=== PATIENT | female | born 1985 | race Caucasian/White ===

== ENCOUNTER 2016-11-10 02:08 | Emergency (ER) | payer OTHER ==
[~2016-11-10] VITALS: Ht 167.6 cm; Wt 63.5 kg
[2016-11-10 02:15] VITALS: BP 122/75
--- NOTE | 2016-11-10 02:27 | PHYS DOC ---
Past Medical History Past Medical History: No Pertinent History Past Surgical History: Tonsillectomy Alcohol Use: None Drug Use: None Adult General Chief Complaint Chief Complaint: FOOT INJURY PAIN HPI HPI Patient is a 31 year old female who presents with left midfoot pain that has gradually started since this evening after she hit the lateral aspect of her left foot on a large griffith at work. The pain was on the ground and she accidentally kicked in with the top/lateral part of her foot. Pain is achy, constant, worse with range of motion. She denies numbness, tingling, weakness, ankle pain, knee pain, fall, other injury. Review of Systems Review of Systems Constitutional: Denies fever or chills [] Eyes: Denies change in visual acuity, redness, or eye pain [] HENT: Denies nasal congestion or sore throat [] Respiratory: Denies cough or shortness of breath [] Cardiovascular: No additional information not addressed in HPI [] GI: Denies abdominal pain, nausea, vomiting, bloody stools or diarrhea [] : Denies dysuria or hematuria [] Musculoskeletal: Denies back pain [] Integument: Denies rash or skin lesions [] Neurologic: Denies headache, focal weakness or sensory changes [] Endocrine: Denies polyuria or polydipsia [] Current Medications Current Medications Current Medications Medications (Trade) Dose Ordered Sig/Louie Start Time Stop Time Status Last Admin Dose Admin Ibuprofen (Motrin) 600 mg 1X ONCE 11/10/16 02:30 11/10/16 02:31 DC Allergies Allergies Allergies Coded Allergies Type Severity Reaction Last Updated Verified No Known Drug Allergies 05/22/15 No Physical Exam Physical Exam Constitutional: Well developed, well nourished, no acute distress, non-toxic appearance. [] HENT: Normocephalic, atraumatic, bilateral external ears normal, oropharynx moist, nose normal. [] Eyes: PERRLA, EOMI. [] Neck: Normal range of motion, supple. [] Cardiovascular: Bilateral DP and PT pulses equal and 2+ [] Lungs & Thorax: Respirations even and unlabored. [] Skin: Warm, dry, no erythema, no rash. [] Back: Normal range of motion. [] Extremities: No obvious deformity or discoloration other than tiny nonbleeding abrasion to lateral mid foot; Has tenderness to soft tissues of foot dorsum with no palpable abnormality; Can flex/ex toes but worsens pain to midfoot; Can dorsiflex/plantar flex ankle but worsens pain to midfoot; No medial or lateral malleolar tenderness; No 5 th metatarsal base tenderness; SILT tinoco/sa/sp/dp/tib distributionsy Neurologic: Alert and oriented X 3, normal motor function, normal sensory function, no focal deficits noted. [] Psychologic: Affect normal, judgement normal, mood normal. [] Current Patient Data Vital Signs Vital Signs Date Time Temp Pulse Resp B/P Pulse Ox O2 Delivery O2 Flow Rate FiO2 11/10/16 02:15 98.7 107 20 100 Room Air 98.7 Radiology/Procedures Radiology/Procedures X-ray left foot as interpreted by me was no acute fracture or dislocation Course & Med Decision Making Course & Med Decision Making Pertinent Labs and Imaging studies reviewed. (See chart for details) Suspect sprain of left foot. Discussed RICE for MSK injury. Return precautions given. She understood and agrees with plan. Dragon Disclaimer Bryan Disclaimer This electronic medical record was generated, in whole or in part, using a voice recognition dictation system. Departure Departure Impression: Primary Impression: Left foot pain Disposition: 01 HOME, SELF-CARE Condition: STABLE Referrals: NO PCP (PCP) Patient Instructions: Foot Contusion, [id number] Additional Instructions: Take Tylenol or ibuprofen as needed for moderate pain. Take hydrocodone as needed for severe pain. Do not drink, drive or operate heavy machinery after taking hydrocodone as it may make you sleepy. Follow-up with your primary care doctor. Return for any concerns. Scripts Hydrocodone Bit/Acetaminophen (Hydrocodone-Apap 5-325 )1 Each Tablet1-2 Tab PO PRN Q6HRS PRN PAIN #6 TAB Prov:Chance VILLEGAS MD 11/10/16 Chance VILLEGAS MD Nov 10, 2016 02:26
[2016-11-10] MEDS ORDERED: IBUPROFEN 600 MG TABLET. PO ONE (02:30)
[2016-11-10] MEDS ORDERED: HYDR-2666 PO (02:39)
--- NOTE | 2016-11-10 07:23 | RAD ---
Left foot, 3 views, 11/10/2016: History: Foot pain, injury No fracture or dislocation is identified. The soft tissues are unremarkable. IMPRESSION: No acute left foot abnormality is detected.
== END 2016-11-10 02:45 | disposition home or self-care (01) ==
LOC: ER 02:08
DX: M79.672 Pain in left foot (principal); W22.8XXA Striking against or struck by other objects, initial encounter; Y93.89 Activity, other specified; Y99.8 Other external cause status; Y92.89 Other specified places as the place of occurrence of the external cause
CPT/HCPCS: 73630; 99284

== ENCOUNTER 2018-06-26 19:18 | Emergency (ER) | payer BC, OTHER ==
[~2018-06-26] VITALS: Ht 170.2 cm; Wt 65.8 kg
[~2018-06-26 19:18] MED LIST: HYDR-2758 PO
[2018-06-26 19:32] VITALS: BP 130/73
[2018-06-26 19:42] LABS: BILIRUBIN,URINE NEGATIVE (NEG); CLARITY,URINE CLOUDY; COLOR,URINE YELLOW; NITRITE,URINE NEGATIVE (NEG); PROTEIN,URINE NEGATIVE (NEG-TRACE)
--- NOTE | 2018-06-26 19:45 | PHYS DOC ---
Past Medical History Past Medical History: No Pertinent History Past Surgical History: Tonsillectomy Alcohol Use: None Drug Use: None Adult General Chief Complaint Chief Complaint: VAGINAL BLEEDING HPI HPI Patient is a 32 year old female 4 para 1 with 2 miscarriages who presents today complaining of vaginal bleeding in that began Friday which is 5 days ago. Patient states it began as spotting and now has increased to more bleeding needing a tampon today. Patient is also complaining of intermittent episodes of slight lower abdominal cramping that began today. Patient denies any nausea vomiting. She states her last menstrual cycle was the end of March. Review of Systems Review of Systems Constitutional: Denies fever or chills [] Eyes: Denies change in visual acuity, redness, or eye pain [] HENT: Denies nasal congestion or sore throat [] Respiratory: Denies cough or shortness of breath [] Cardiovascular: No additional information not addressed in HPI [] GI: Reports vaginal bleeding in and slight lower abdominal pain, denies, nausea, vomiting, bloody stools or diarrhea [] : Denies dysuria or hematuria [] Musculoskeletal: Denies back pain or joint pain [] Integument: Denies rash or skin lesions [] All other systems were reviewed and found to be within normal limits, except as documented in this note. Current Medications Current Medications Current Medications Medications (Trade) Dose Ordered Sig/Louie Start Time Stop Time Status Last Admin Dose Admin Azithromycin (Zithromax) 1,000 mg 1X ONCE 06/26/18 23:00 06/26/18 23:01 DC Ceftriaxone Sodium (Rocephin Im) 250 mg 1X ONCE 06/26/18 23:00 06/26/18 23:01 DC Metronidazole (Flagyl) 2,000 mg 1X ONCE 06/26/18 23:00 06/26/18 23:01 DC Allergies Allergies Allergies Coded Allergies Type Severity Reaction Last Updated Verified No Known Drug Allergies 05/22/15 No Physical Exam Physical Exam Constitutional: Well developed, well nourished, no acute distress, non-toxic appearance. [] HENT: Normocephalic, atraumatic, bilateral external ears normal, oropharynx moist, no oral exudates, nose normal. [] Eyes: PERRLA, EOMI, conjunctiva normal, no discharge. [] Neck: Normal range of motion, no tenderness, supple, no stridor. [] Cardiovascular:Heart rate regular rhythm, no murmur [] Lungs & Thorax: Bilateral breath sounds clear to auscultation [] Abdomen: Bowel sounds normal, soft, no tenderness, no masses, no pulsatile masses. [] Pelvic exam External pelvic appears normal, cervix is closed, no CMT, trace amount of brownish discharge in the vaginal vault, no adnexal tenderness Skin: Warm, dry, no erythema, no rash. [] Back: No tenderness, no CVA tenderness. [] Extremities: No tenderness, no cyanosis, no clubbing, ROM intact, no edema. [] Neurologic: Alert and oriented X 3, normal motor function, normal sensory function, no focal deficits noted. [] Psychologic: Affect normal, judgement normal, mood normal. [] Current Patient Data Vital Signs Vital Signs Date Time Temp Pulse Resp B/P (MAP) Pulse Ox O2 Delivery O2 Flow Rate FiO2 06/26/18 19:32 98.5 147 20 130/73 (92) 99 Room Air 98.5 Lab Values Laboratory Tests Test 06/26/18 19:25 06/26/18 19:37 06/26/18 19:44 Urine Collection Type Void Urine Color Yellow Urine Clarity Cloudy Urine pH 7.0 Urine Specific [place] 1.020 Urine Protein Negative mg/dL (NEG-TRACE) Urine Glucose (UA) Negative mg/dL (NEG) Urine Ketones (Stick) Negative mg/dL (NEG) Urine Blood Moderate (NEG) Urine Nitrite Negative (NEG) Urine Bilirubin Negative (NEG) Urine Urobilinogen Dipstick 1.0 mg/dL (0.2 mg/dL) Urine Leukocyte Esterase Trace (NEG) Urine RBC 0 /HPF (0-2) Urine WBC Rare /HPF (0-4) Urine Squamous Epithelial Cells Mod /LPF Urine Bacteria 0 /HPF (0-FEW) Urine Mucus Slight /LPF Urine Trichomonas Present POC Urine HCG, Qualitative Hcg positive (Negative) White Blood Count 12.2 x10^3/uL (4.0-11.0) H Red Blood Count 4.64 x10^6/uL (3.50-5.40) Hemoglobin 13.4 g/dL (12.0-15.5) Hematocrit 39.3 % (36.0-47.0) Mean Corpuscular Volume 85 fL (79-100) Mean Corpuscular Hemoglobin 29 pg (25-35) Mean Corpuscular Hemoglobin Concent 34 g/dL (31-37) Red Cell Distribution Width 13.6 % (11.5-14.5) Platelet Count 318 x10^3/uL (140-400) Neutrophils (%) (Auto) 73 % (31-73) Lymphocytes (%) (Auto) 19 % (24-48) L Monocytes (%) (Auto) 6 % (0-9) Eosinophils (%) (Auto) 2 % (0-3) Basophils (%) (Auto) 1 % (0-3) Neutrophils # (Auto) 8.8 x10^3uL (1.8-7.7) H Lymphocytes # (Auto) 2.3 x10^3/uL (1.0-4.8) Monocytes # (Auto) 0.8 x10^3/uL (0.0-1.1) Eosinophils # (Auto) 0.2 x10^3/uL (0.0-0.7) Basophils # (Auto) 0.1 x10^3/uL (0.0-0.2) Maternal Serum HCG Beta Subunit 9752 mIU/mL (0-5) H Sodium Level 142 mmol/L (136-145) Potassium Level 3.5 mmol/L (3.5-5.1) Chloride Level 105 mmol/L (98-107) Carbon Dioxide Level 26 mmol/L (21-32) Anion Gap 11 (6-14) Blood Urea Nitrogen 16 mg/dL (7-20) Creatinine 0.5 mg/dL (0.6-1.0) L Estimated GFR (Cockcroft-Gault) 143.0 BUN/Creatinine Ratio 32 (6-20) H Glucose Level 101 mg/dL (70-99) H Calcium Level 8.9 mg/dL (8.5-10.1) Total Bilirubin 0.2 mg/dL (0.2-1.0) Aspartate Amino Transferase (AST) 24 U/L (15-37) Alanine Aminotransferase (ALT) 40 U/L (14-59) Alkaline Phosphatase 92 U/L (46-116) Total Protein 7.2 g/dL (6.4-8.2) Albumin 3.2 g/dL (3.4-5.0) L Albumin/Globulin Ratio 0.8 (1.0-1.7) L Laboratory Tests 06/26/18 19:44 Laboratory Tests 06/26/18 19:44 Microbiology 06/26/18 Wet Prep - Final, Complete EKG EKG [] Radiology/Procedures Radiology/Procedures []REASON: vag bleeding in PROCEDURE: OB <14 WKS W/TV EXAM: OBSTETRIC ULTRASOUND <14 WEEKS. HISTORY: Vaginal bleeding in . FINDINGS: Sonographic evaluation of the pelvis was performed transabdominally and transvaginally. The uterus is anteverted and measures 10 x 7 x 5 cm. A single intrauterine gestation measures 6 weeks zero days by crown-rump length. There is no detectable heart motion. A yolk sac is visualized. There is no subchorionic collection. The gestational sac is larger than expected for gestational age and elongated. The right ovary measures 2.7 x 1.6 x 2.0 cm. The right ovary contains a corpus luteum cyst measuring 1.6 cm. The left ovary measures 2.6 x 1.4 x 1.2 cm. There are no suspicious lesions. There is normal flow bilaterally. There is no adnexal mass. There is no significant free fluid. IMPRESSION: 1. An intrauterine gestation measures 6 weeks zero days by crown-rump length, but the gestational sac is larger than expected, and no heart motion is identified. This is consistent with a nonviable gestation. Ongoing follow-up is recommended. Electronically signed by: Tayler Cabrera MD (06/26/2018 9:31 PM) [facility] DICTATED and SIGNED BY: RENETTA CABRERA MD DATE: 06/26/182127 Course & Med Decision Making Course & Med Decision Making Pertinent Labs and Imaging studies reviewed. (See chart for details) This is a 32-year-old female patient presenting to the ED today with vaginal bleeding in as well as slight abdominal pain. Symptoms began 5 days ago. On physical exam patient was spotting. Positive urine hCG, beta-hCG with 9752. CBC with a WBC of 12.2. CMP with no acute findings. Urine analysis is noted for Trichomonas, wet prep is negative for any acute findings. Patient was given Flagyl, Rocephin and azithromycin. Blood group O positive. OB ultrasound was noted for IUP gestational measures 6 weeks 0 days by crown rump length but gestational sac is larger than expected and no heart motion is identified. This is consistent with a nonviable gestational. Ongoing follow-up is recommended. I spoke to Dr. Vivi CISNEROS. She requested patient to observe conservative measures, no sex, no heavy lifting, follow-up with [facility] [facility] in 2 days for repeat ultrasound as well as repeat beta hCG. Patient was also instructed to return to the ED at any point symptoms worsen. Dragon Disclaimer Dragon Disclaimer This electronic medical record was generated, in whole or in part, using a voice recognition dictation system. Departure Departure Impression: Primary Impression: Threatened miscarriage Additional Impression: Trichomonas vaginitis Disposition: HOME, SELF-CARE Condition: STABLE Referrals: NO PCP (PCP) SAUD CORTES MD follow up with your OBGYN in 2 days for repeat labs and ultrasound Patient Instructions: Threatened Miscarriage, Trichomoniasis-Brief Additional Instructions: You were evaluated in the emergency room for vaginal bleeding in . Please follow-up with your [employer] [facility] in 2 days for repeat beta hCG as well as repeat ultrasound. Please do not do any strenuous activities, no sex, no heavy lifting. You were also treated for Trichomonas, this is a sexually transmitted disease. Ensure you contact all your partners, let them know you were treated for STDs and ask them to seek treatment too. Problem Qualifiers PHIL BLACK APRN Jun 26, 2018 19:45
[2018-06-26 19:54] LABS: BASO # 0.1 x10^3/uL (0.0-0.2); BASO % 1 % (0-3); EOS # 0.2 x10^3/uL (0.0-0.7); EOS % 2 % (0-3); HEMATOCRIT 39.3 % (36.0-47.0); HEMOGLOBIN 13.4 g/dL (12.0-15.5); LYMPH # 2.3 x10^3/uL (1.0-4.8); LYMPH % 19 % (24-48); MEAN CORPUSCULAR HEMOGLOBIN 29 pg (25-35); MEAN CORPUSCULAR HGB CONC 34 g/dL (31-37); MEAN CORPUSCULAR VOLUME 85 fL (79-100); MONO # 0.8 x10^3/uL (0.0-1.1); MONO % 6 % (0-9); NEUT # 8.8 x10^3uL (1.8-7.7); NEUT % 73 % (31-73); PLATELET COUNT 318 x10^3/uL (140-400); RED BLOOD COUNT 4.64 x10^6/uL (3.50-5.40); RED CELL DISTRIBUTION WIDTH 13.6 % (11.5-14.5); WHITE BLOOD COUNT 12.2 x10^3/uL (4.0-11.0)
[2018-06-26 20:13] LABS: BACTERIA,URINE 0 /HPF (0-FEW); RBC,URINE 0 /HPF (0-2); SQUAMOUS EPITHELIAL CELL,UR MOD /LPF; TRICHOMONAS,URINE PRESENT; WBC,URINE RARE /HPF (0-4)
[2018-06-26 20:16] LABS: CALCIUM 8.9 mg/dL (8.5-10.1); CREATININE 0.5 mg/dL (0.6-1.0); POTASSIUM 3.5 mmol/L (3.5-5.1)
[2018-06-26 20:24] LABS: ALBUMIN 3.2 g/dL (3.4-5.0); ALBUMIN/GLOBULIN RATIO 0.8 (1.0-1.7); TOTAL BILIRUBIN 0.2 mg/dL (0.2-1.0); TOTAL PROTEIN 7.2 g/dL (6.4-8.2)
--- NOTE | 2018-06-26 21:33 | RAD ---
EXAM: OBSTETRIC ULTRASOUND <14 WEEKS. HISTORY: Vaginal bleeding in . FINDINGS: Sonographic evaluation of the pelvis was performed transabdominally and transvaginally. The uterus is anteverted and measures 10 x 7 x 5 cm. A single intrauterine gestation measures 6 weeks zero days by crown-rump length. There is no detectable heart motion. A yolk sac is visualized. There is no subchorionic collection. The gestational sac is larger than expected for gestational age and elongated. The right ovary measures 2.7 x 1.6 x 2.0 cm. The right ovary contains a corpus luteum cyst measuring 1.6 cm. The left ovary measures 2.6 x 1.4 x 1.2 cm. There are no suspicious lesions. There is normal flow bilaterally. There is no adnexal mass. There is no significant free fluid. IMPRESSION: 1. An intrauterine gestation measures 6 weeks zero days by crown-rump length, but the gestational sac is larger than expected, and no heart motion is identified. This is consistent with a nonviable gestation. Ongoing follow-up is recommended. Electronically signed by: Tayler Cabrera MD (06/26/2018 9:31 PM) [facility]
[2018-06-26] MEDS ORDERED: metroNIDAZOLE 500 MG TABLET PO ONE (23:00)
[2018-06-26] MEDS ORDERED: cefTRIAXone IM 250 MG VIAL IM ONE (23:00)
[2018-06-26] MEDS ORDERED: AZITHROMYCIN 250 MG TABLET. PO ONE (23:00)
[2018-06-29 15:26] LABS: GC PROBE Negative (Negative)
== END 2018-06-26 22:45 | disposition home or self-care (01) ==
LOC: ER 19:18
DX: O20.0 Threatened abortion (principal); O98.311 Other infections with a predominantly sexual mode of transmission complicating pregnancy, first trimester; A59.01 Trichomonal vulvovaginitis; Z90.89 Acquired absence of other organs; Z3A.01 Less than 8 weeks gestation of pregnancy
CPT/HCPCS: 76801; 76817; 80053; 81001; 81025; 84702; 85025; 86850; 86900; 86901; 87086; 87491; 87591; 96372; 99285; J0696; Q0111; Q0144

== ENCOUNTER 2018-06-29 06:30 | Emergency (ER) | payer BC ==
[~2018-06-29] VITALS: Ht 170.2 cm; Wt 65.8 kg
[2018-06-29] MEDS ORDERED: ACETAMINOPHEN 500 MG TABLET PO ONE (07:15)
[2018-06-29 07:18] LABS: BASO # 0.1 x10^3/uL (0.0-0.2); BASO % 1 % (0-3); EOS # 0.4 x10^3/uL (0.0-0.7); EOS % 3 % (0-3); HEMATOCRIT 39.6 % (36.0-47.0); HEMOGLOBIN 13.3 g/dL (12.0-15.5); LYMPH # 2.6 x10^3/uL (1.0-4.8); LYMPH % 22 % (24-48); MEAN CORPUSCULAR HEMOGLOBIN 29 pg (25-35); MEAN CORPUSCULAR HGB CONC 34 g/dL (31-37); MEAN CORPUSCULAR VOLUME 85 fL (79-100); MONO # 0.9 x10^3/uL (0.0-1.1); MONO % 7 % (0-9); NEUT % 67 % (31-73); PLATELET COUNT 335 x10^3/uL (140-400); RED BLOOD COUNT 4.66 x10^6/uL (3.50-5.40); RED CELL DISTRIBUTION WIDTH 13.5 % (11.5-14.5); WHITE BLOOD COUNT 11.9 x10^3/uL (4.0-11.0)
[2018-06-29] MEDS ORDERED: KETOROLAC 15 MG/ML VIAL. IV ONE (08:00)
--- NOTE | 2018-06-29 08:06 | RAD ---
OB ultrasound study less than 14 weeks-transabdominal and transvaginal exam Clinical indications: . Vaginal bleeding. COMPARISON: June 26, 2018. Transabdominal sonography: Uterus is anteverted in position. There is a gestational sac present within the lower body of uterus. It has migrated inferiorly from the previously seen fundal position which is considered abnormal for typical of a spontaneous . Transvaginal sonography will be performed. Neither ovary is visualized. Transvaginal sonography: Transvaginal sonography demonstrates an elongated gestational sac within the lower uterine segment just above the cervix. There is a small single fetus present. [place]-rump length is 0.23 cm which corresponds to a gestational age of 5 weeks and 5 days. This has decreased in size from the previous study when the crown-rump length measured 0.34. In addition, the relative gestational sac size is much larger than the fetus. No heartbeat is seen. Findings are consistent with spontaneous . The endometrial canal within the fundal portion of the uterus measures only 6 mm in thickness as well. The right ovary is not visualized. No adnexal mass is seen on the right side. The left ovary is visualized and is normal measuring 2.3 cm x 1.8 cm x 1.3 cm in size. Color Doppler flow is seen within the left ovary. No left adnexal mass is seen. No free fluid is evident. IMPRESSION: Findings are consistent with spontaneous . The gestational sac has now migrated more inferiorly within the lower body of the uterus just above the cervix. Electronically signed by: Scout Paulino MD (06/29/2018 8:03 AM) [facility]
[2018-06-29] MEDS ORDERED: HYDR-971 PO (08:55)
[2018-06-29 09:20] VITALS: BP 112/57
--- NOTE | 2018-06-29 09:48 | PHYS DOC ---
Past Medical History Past Medical History: No Pertinent History Past Surgical History: Tonsillectomy Alcohol Use: None Drug Use: None Adult General Chief Complaint Chief Complaint: ABDOMINAL PAIN IN HPI HPI Patient is a 32 year old female who presents with lower abdominal pain and cramping as well as continued vaginal spotting with occasional clots. Pain increased this morning she was seen here the other day she had betas of 9000 ultrasound showing an abnormal gestational sac and was advised on follow-up. She has an appointment at 2 PM today symptoms are moderate left lower quadrant radiates to the center intermittent cramping has not tried anything for relief Review of Systems Review of Systems Constitutional: Denies fever or chills [] Eyes: Denies change in visual acuity, redness, or eye pain [] HENT: Denies nasal congestion or sore throat [] Respiratory: Denies cough or shortness of breath [] Musculoskeletal: Denies back pain or joint pain [] Integument: Denies rash or skin lesions [] Neurologic: Denies headache, focal weakness or sensory changes [] All other systems were reviewed and found to be within normal limits, except as documented in this note. Current Medications Current Medications Current Medications Medications (Trade) Dose Ordered Sig/Louie Start Time Stop Time Status Last Admin Dose Admin Acetaminophen (Tylenol) 1,000 mg 1X ONCE 06/29/18 07:15 06/29/18 07:16 DC 06/29/18 07:18 1,000 MG Ketorolac Tromethamine (Toradol 15mg Vial) 15 mg 1X ONCE 06/29/18 08:00 06/29/18 08:04 DC 06/29/18 08:04 15 MG Allergies Allergies Allergies Coded Allergies Type Severity Reaction Last Updated Verified No Known Drug Allergies 05/22/15 No Physical Exam Physical Exam Constitutional: Well developed, well nourished, no acute distress, non-toxic appearance. [] HENT: Normocephalic, atraumatic, bilateral external ears normal, oropharynx moist, no oral exudates, nose normal. [] Eyes: PERRLA, EOMI, conjunctiva normal, no discharge. [] Neck: Normal range of motion, no tenderness, supple, no stridor. [] Pulmonary: Normal respiratory effort no increased work of breathing no obvious chest wall trauma Abdomen: Bowel sounds normal, soft, suprapubic tenderness, no masses, no pulsatile masses. [] exam shows an open cervix with moderate blood in the vaginal vault trace bruising there were significant apparent blood clots and also likely proximal of conception in the vaginal canal that were easily removed by me. Skin: Warm, dry, no erythema, no rash. [] Back: No tenderness, no CVA tenderness. [] Extremities: No tenderness, no cyanosis, no clubbing, ROM intact, no edema. [] Neurologic: Alert and oriented X 3, normal motor function, normal sensory function, no focal deficits noted. [] Psychologic: Affect normal, judgement normal, mood normal. [] Current Patient Data Vital Signs Vital Signs Date Time Temp Pulse Resp B/P (MAP) Pulse Ox O2 Delivery O2 Flow Rate FiO2 06/29/18 07:36 94 18 115/58 (77) 99 Room Air 06/29/18 06:45 98.3 98.3 Lab Values Laboratory Tests Test 06/29/18 06:45 06/29/18 07:00 POC Urine HCG, Qualitative Hcg positive (Negative) White Blood Count 11.9 x10^3/uL (4.0-11.0) H Red Blood Count 4.66 x10^6/uL (3.50-5.40) Hemoglobin 13.3 g/dL (12.0-15.5) Hematocrit 39.6 % (36.0-47.0) Mean Corpuscular Volume 85 fL (79-100) Mean Corpuscular Hemoglobin 29 pg (25-35) Mean Corpuscular Hemoglobin Concent 34 g/dL (31-37) Red Cell Distribution Width 13.5 % (11.5-14.5) Platelet Count 335 x10^3/uL (140-400) Neutrophils (%) (Auto) 67 % (31-73) Lymphocytes (%) (Auto) 22 % (24-48) L Monocytes (%) (Auto) 7 % (0-9) Eosinophils (%) (Auto) 3 % (0-3) Basophils (%) (Auto) 1 % (0-3) Neutrophils # (Auto) 8.0 x10^3uL (1.8-7.7) H Lymphocytes # (Auto) 2.6 x10^3/uL (1.0-4.8) Monocytes # (Auto) 0.9 x10^3/uL (0.0-1.1) Eosinophils # (Auto) 0.4 x10^3/uL (0.0-0.7) Basophils # (Auto) 0.1 x10^3/uL (0.0-0.2) Maternal Serum HCG Beta Subunit 7238 mIU/mL (0-5) H Laboratory Tests 06/29/18 07:00 EKG EKG [] Radiology/Procedures Radiology/Procedures [] Impressions: Transvaginal sonography: Transvaginal sonography demonstrates an elongated gestational sac within the lower uterine segment just above the cervix. There is a small single fetus present. [place]-rump length is 0.23 cm which corresponds to a gestational age of 5 weeks and 5 days. This has decreased in size from the previous study when the crown-rump length measured 0.34. In addition, the relative gestational sac size is much larger than the fetus. No heartbeat is seen. Findings are consistent with spontaneous . The endometrial canal within the fundal portion of the uterus measures only 6 mm in thickness as well. The right ovary is not visualized. No adnexal mass is seen on the right side. The left ovary is visualized and is normal measuring 2.3 cm x 1.8 cm x 1.3 cm in size. Color Doppler flow is seen within the left ovary. No left adnexal mass is seen. No free fluid is evident. IMPRESSION: Findings are consistent with spontaneous . The gestational sac has now migrated more inferiorly within the lower body of the uterus just above the cervix. Electronically signed by: Kamryn Paulino MD (06/29/2018 8:03 AM) [facility] DICTATED and SIGNED BY: KAMRYN PAULINO MD Course & Med Decision Making Course & Med Decision Making Pertinent Labs and Imaging studies reviewed. (See chart for details) []32-year-old female 6 weeks presenting with spontaneous miscarriage. Wrist on ultrasound and a declining beta. In the emergency room I removed a fairly significant amount of apparent POC from the vaginal vault. Patient has follow-up appointment 2 PM she is hemolytically stable her symptoms are controlled I give prescription for Clio and advised to keep her appointment. At this point I do not think that she needs a stat D and c sent poc to lab for confirmation Dragon Disclaimer Dragon Disclaimer This electronic medical record was generated, in whole or in part, using a voice recognition dictation system. Departure Departure Impression: Primary Impression: Spontaneous Disposition: 01 HOME, SELF-CARE Condition: STABLE Patient Instructions: Miscarriage, [id number] Additional Instructions: go to your appointment today Scripts Hydrocodone/Apap 5-325 (NORCO 5-325 TABLET) 1 Each Tablet 1-2 EACH PO PRN Q6HRS PRN for PAIN, #15 as needed for pain Prov: ARABELLA BELCHER MD 06/29/18 ARABELLA BELCHER MD Jun 29, 2018 09:48
--- NOTE | 2018-06-30 16:08 | PATHOLOGY ---
[facility] Accession Number: [id number] . 01 Material submitted: . PRODUCTS OF CONCEPTION . 01 Clinician provided ICD-10: O03.9 . 01 Clinical history: . SAB, probable products of conception . 02 Diagnosis: Tissue designated "products of conception": - Blood clot containing focally admixed squamous epithelial cells and inflammatory cells. See comment. (JPM:earnest; 06/30/2018) QMS/06/30/2018 . 02 Comment: The entire specimen is submitted for histologic evaluation. The microscopic sections reveal blood clot containing focally admixed squamous epithelial cells and inflammatory cells. There are no chorionic villi identified. (JPM:earnest; 06/30/2018) . 02 Electronically signed: . Ramon Goldsmith MD, Pathologist NPI- [id number] . 01 Gross description: . The specimen is received in formalin, labeled "Mary [place], products of conception" and consists of 11 g of blood clot measuring 5.5 x 5.0 x 1.0 cm. No soft tissue, vesicular structures, or parts are identified. The specimen is entirely submitted in A1-A6. (SDY; 06/29/2018) SYU/SYU . 02 Pathologist provided ICD-10: O03.9, O02.89 . 02 CPT . 732059 Specimen Comment: A courtesy copy of this report has been sent to Specimen Comment: [phone], . Specimen Comment: Report sent to / DR KLEIN Specimen Comment: A duplicate report has been generated due to demographic updates. Performed at: [address], [place], [place] [id number] MD Jake Barksdale MD Phone: [phone] Performed at: 02 [facility] [address] [place], [place] [id number] MD Ramon Goldsmith MD Phone: [phone]
[2018-07-05] MEDS ORDERED: IBUP-1060 PO (11:34)
== END 2018-06-29 09:20 | disposition home or self-care (01) ==
LOC: ER 06:30
DX: O03.9 Complete or unspecified spontaneous abortion without complication (principal); Z3A.01 Less than 8 weeks gestation of pregnancy
CPT/HCPCS: 36415; 76801; 76817; 81025; 84702; 85025; 88305; 96374; 99285; J1885

== ENCOUNTER 2018-07-04 11:25 | Observation (INO) | payer BC ==
[2018-07-04] VITALS (8 sets, daily range): BP systolic 94–114; BP diastolic 44–63
[~2018-07-04] VITALS: Ht 170.2 cm; Wt 72.6 kg
[~2018-07-04 11:25] MED LIST changes: +HYDR-971 PO
[2018-07-04] MEDS ORDERED: OXYTOCIN 10 UNIT/ML VIAL. ONE ×2 (11:40→13:30)
[2018-07-04] MEDS ORDERED: VASOPRESSIN 20 UNIT/ML VIAL. ONE (11:40)
[2018-07-04] MEDS ORDERED: IV NORMAL SALINE 1000ML BAG 1,000 ML IV ONE ×2 (12:00)
[2018-07-04 12:06] LABS: BASO # 0.1 x10^3/uL (0.0-0.2); BASO % 1 % (0-3); EOS # 0.1 x10^3/uL (0.0-0.7); EOS % 2 % (0-3); HEMATOCRIT 32.7 % (36.0-47.0); HEMOGLOBIN 11.2 g/dL (12.0-15.5); LYMPH # 2.1 x10^3/uL (1.0-4.8); LYMPH % 24 % (24-48); MEAN CORPUSCULAR HEMOGLOBIN 29 pg (25-35); MEAN CORPUSCULAR HGB CONC 34 g/dL (31-37); MEAN CORPUSCULAR VOLUME 85 fL (79-100); MONO # 0.6 x10^3/uL (0.0-1.1); MONO % 7 % (0-9); NEUT # 5.8 x10^3uL (1.8-7.7); NEUT % 67 % (31-73); PLATELET COUNT 313 x10^3/uL (140-400); RED BLOOD COUNT 3.87 x10^6/uL (3.50-5.40); RED CELL DISTRIBUTION WIDTH 13.4 % (11.5-14.5); WHITE BLOOD COUNT 8.7 x10^3/uL (4.0-11.0)
[2018-07-04 12:11] LABS: CALCIUM 9.2 mg/dL (8.5-10.1); CREATININE 0.6 mg/dL (0.6-1.0); GFR 115.9; POTASSIUM 3.6 mmol/L (3.5-5.1)
[2018-07-04] MEDS ORDERED: MORPHINE SULFATE 10 MG/ML VIAL. IV ONE (12:15)
[2018-07-04] MEDS ORDERED: ONDANSETRON PF 4 MG/2 ML VIAL. IM ONE (12:15)
[2018-07-04 12:17] LABS: ALBUMIN 3.3 g/dL (3.4-5.0); ALBUMIN/GLOBULIN RATIO 0.9 (1.0-1.7); TOTAL BILIRUBIN 0.4 mg/dL (0.2-1.0); TOTAL PROTEIN 7.1 g/dL (6.4-8.2)
[2018-07-04] MEDS ORDERED: PROPOFOL 20 ML IV ONE (12:31)
[2018-07-04] MEDS ORDERED: LIDOCAINE 2% PF Vial for OR 5 ML VIAL. ONE (12:32)
[2018-07-04] MEDS ORDERED: ONDANSETRON PF 4 MG/2 ML VIAL. ONE (12:32)
[2018-07-04] MEDS ORDERED: SUCCINYLCHOLINE 200 MG/10 ML VIAL. ONE (12:32)
[2018-07-04] MEDS ORDERED: DEXAMETHASONE SOD PHOS 20 MG/5 ML VIAL. ONE (12:32)
[2018-07-04] MEDS ORDERED: fentaNYL PF VIAL 100 MCG/2 ML VIAL ONE ×2 (12:33→13:46)
[2018-07-04] MEDS ORDERED: MIDAZOLAM HCL/PF 2 MG/2 ML VIAL. ONE (12:33)
[2018-07-04] MEDS ORDERED: ROCURONIUM 50 MG/5 ML VIAL. ONE (12:43)
[2018-07-04] MEDS ORDERED: ONDANSETRON PF 4 MG/2 ML VIAL. IV PRN ×3 (12:45→13:45)
[2018-07-04] MEDS ORDERED: MORPHINE SULFATE 4 MG/ML VIAL. IV PRN (12:45)
[2018-07-04] MEDS ORDERED: fentaNYL PF VIAL 100 MCG/2 ML VIAL IV PRN ×2 (12:45→13:00)
[2018-07-04] MEDS ORDERED: IV RINGERS,LACTATED 1000ML 1,000 ML IV SCH (12:53)
[2018-07-04] MEDS ORDERED: HYDROmorphone 2 MG/ML VIAL IV PRN (13:00)
[2018-07-04] MEDS ORDERED: LIDOCAINE 1% PF 2 ML VIAL. ID PRN (13:00)
[2018-07-04] MEDS ORDERED: PROCHLORPERAZINE 10 MG/2 ML VIAL. IV PRN ×2 (13:00→13:45)
[2018-07-04] MEDS ORDERED: MORPHINE SULFATE 2 MG/ML VIAL. IV PRN (13:00)
[2018-07-04] MEDS ORDERED: FAMOTIDINE 20 MG/2 ML VIAL ONE (13:21)
--- NOTE | 2018-07-04 13:40 | PDOC ---
BRIEF OPERATIVE NOTE Date: Jul 04, 2018 Pre-Op Diagnosis 8 wks Incomplete AB Post-Op Diagnosis Same Procedure Performed Suction D&C Surgeon Dr. Scott Anesthesia Type: General Blood Loss 100 ml Specimens Obtained POC and blood products Findings POC and blood products Complications none Operative Note see dictation STEPHANIE SCOTT Jr, MD Jul 04, 2018 13:40
[2018-07-04] MEDS ORDERED: diphenhydrAMINE HCL 25 MG CAPSULE PO PRN (13:45)
[2018-07-04] MEDS ORDERED: KETOROLAC 30 MG/ML VIAL. IV PRN (13:45)
[2018-07-04] MEDS ORDERED: CALCIUM CARBONATE 500 MG TAB.CHEW PO PRN (13:45)
[2018-07-04] MEDS ORDERED: oxyCODONE/APAP 5/325 1 TAB TABLET PO PRN (13:45)
[2018-07-04] MEDS ORDERED: 0.9 % SODIUM CHLORIDE 10 ML DISP.SYRIN. IV PRN (13:45)
[2018-07-04] MEDS ORDERED: ZOLPIDEM 5 MG TABLET. PO PRN (13:45)
[2018-07-04] MEDS ORDERED: DEXTROSE 50% 25 GM / 50ML DISP.SYRIN. IV PRN (13:45)
[2018-07-04] MEDS ORDERED: SIMETHICONE 80 MG TAB.CHEW PO PRN (13:45)
[2018-07-04] MEDS: fentaNYL PF VIAL 100 MCG/2 ML VIAL IV PRN ×2 (13:52→14:07)
--- NOTE | 2018-07-04 13:57 | OP ---
DATE OF SURGERY: 07/04/2018 PREOPERATIVE DIAGNOSES: Eight weeks incomplete . POSTOPERATIVE DIAGNOSIS: Eight weeks incomplete . PROCEDURE: Suction D and C. SURGEON: Gagandeep Scott MD ANESTHESIA: GETA. ESTIMATED BLOOD LOSS: 100 mL, mainly blood clot. FINDINGS: Products of conception and blood products. SUMMARY: A 32-year-old female with 8-week incomplete , requiring suction D and C for active bleeding. The patient was counseled on risks, benefits and expectations and voiced clear understanding to proceed. DESCRIPTION OF PROCEDURE: The patient was taken to surgery suite and placed in dorsal lithotomy position. She was prepped with Betadine solution and draped in sterile fashion. After adequate anesthesia, weighted speculum and curved Dale placed vaginally. Blood clot and previous packing from the Emergency Department was removed. There was a large amount of tissue right at the cervical os that was removed with ring forceps. Suction curette at a pressure of 65 cmHg was placed and rotated in circumferential manner in the uterine cavity, removing additional blood products. The sharp curettage then was performed until a fine gritty surface was palpated circumferentially. Suction curette was once again passed removing additional blood products. The patient tolerated the procedure well. Single tooth tenaculum, weighted speculum and curved Dale were all removed. She was taken to recovery room in stable condition. Sponge and needle count correct x 3. GAGANDEEP SCOTT MD DR: LUZ/mikal JOB#: [id number] / [id number]
[2018-07-04] MEDS ORDERED: IV NORMAL SALINE 1000ML BAG 1,000 ML IV SCH (14:00)
[2018-07-04] MEDS ORDERED: GABAPENTIN 300 MG CAPSULE. PO SCH (15:00)
--- NOTE | 2018-07-04 15:40 | PHYS DOC ---
Past Medical History Past Medical History: No Pertinent History Past Surgical History: Tonsillectomy, Other Additional Past Surgical Histo: D&C Alcohol Use: None Drug Use: None Adult General Chief Complaint Chief Complaint: VAGINAL BLEEDING HPI HPI Patient is a 32 year old female who presents with heavy vaginal bleeding. The patient states that she has been experiencing intermittent vaginal bleeding for 2 weeks. She was seen at this facility where she had proximal of conception were removed and had what was thought to be a complete miscarriage. The patient states that 2 days ago she started having much heavier bleeding. She states that when she stands up she immediately soaks a pad. She denies chest pain, shortness of breath, lightheadedness or fever. She denies pelvic pain. Review of Systems Review of Systems Constitutional: Denies fever or chills [] Respiratory: Denies cough or shortness of breath [] Cardiovascular: No additional information not addressed in HPI [] GI: Denies abdominal pain, nausea, vomiting, bloody stools or diarrhea [] : See history of present illness Musculoskeletal: Denies back pain or joint pain [] Integument: Denies rash or skin lesions [] Neurologic: Denies headache, focal weakness or sensory changes [] Endocrine: Denies polyuria or polydipsia [] All other systems were reviewed and found to be within normal limits, except as documented in this note. Current Medications Current Medications Current Medications Medications (Trade) Dose Ordered Sig/Louie Start Time Stop Time Status Last Admin Dose Admin Cefazolin Sodium/ Dextrose 50 ml @ As Directed STK-MED ONCE 07/04/18 13:07 07/04/18 13:08 DC Dexamethasone Sodium Phosphate (Decadron) 20 mg STK-MED ONCE 07/04/18 12:32 07/04/18 12:33 DC Famotidine (Pepcid Vial) 20 mg STK-MED ONCE 07/04/18 13:21 07/04/18 13:22 DC Fentanyl Citrate (Fentanyl 2ml Vial) 50 mcg PRN Q5MIN PRN 07/04/18 13:00 07/05/18 12:59 07/04/18 14:07 50 MCG Hydromorphone HCl (Dilaudid) 0.5 mg PRN Q10MIN PRN 07/04/18 13:00 07/05/18 12:59 Lidocaine HCl (Lidocaine Pf 2% Vial) 5 ml STK-MED ONCE 07/04/18 12:32 07/04/18 12:33 DC Lidocaine HCl (Xylocaine-Mpf 1% 2ml Vial) 2 ml 1X PRN PRN 07/04/18 13:00 07/05/18 12:59 Midazolam HCl (Versed) 2 mg STK-MED ONCE 07/04/18 12:33 07/04/18 12:34 DC Morphine Sulfate (Morphine Sulfate) 1 mg PRN Q10MIN PRN 07/04/18 13:00 07/05/18 12:59 Ondansetron HCl (Zofran) 4 mg PRN Q6HRS PRN 07/04/18 13:00 07/04/18 13:45 DC Oxytocin (Pitocin) 10 unit STK-MED ONCE 07/04/18 13:30 07/04/18 13:31 DC Prochlorperazine Edisylate (Compazine) 5 mg PACU PRN PRN 07/04/18 13:00 07/05/18 12:59 Propofol 20 ml @ As Directed STK-MED ONCE 07/04/18 12:31 07/04/18 12:32 DC Ringer's Solution 1,000 ml @ 30 mls/hr Q24H 07/04/18 12:53 07/05/18 00:52 Rocuronium [place] (Zemuron) 50 mg STK-MED ONCE 07/04/18 12:43 07/04/18 12:44 DC Sodium Chloride 1,000 ml @ 1,000 mls/hr 1X ONCE 07/04/18 12:00 07/04/18 12:59 DC 07/04/18 12:03 1,000 MLS/HR Succinylcholine Chloride (Anectine) 200 mg STK-MED ONCE 07/04/18 12:32 07/04/18 12:33 DC Vasopressin (Vasostrict) 20 unit STK-MED ONCE 07/04/18 11:40 07/04/18 12:41 DC Allergies Allergies Allergies Coded Allergies Type Severity Reaction Last Updated Verified No Known Drug Allergies 05/22/15 No Physical Exam Physical Exam Constitutional: Well developed, well nourished, no acute distress, non-toxic appearance. [] Neck: Normal range of motion, no tenderness, supple, no stridor. [] Cardiovascular:Heart rate regular rhythm, no murmur [] Lungs & Thorax: Bilateral breath sounds clear to auscultation [] Abdomen: Bowel sounds normal, soft, no tenderness, no masses, no pulsatile masses. [] Skin: Warm, dry, no erythema, no rash. [] Neurologic: Alert and oriented X 3, normal motor function, normal sensory function, no focal deficits noted. [] Psychologic: Affect normal, judgement normal, mood normal. [] Current Patient Data Vital Signs Vital Signs Date Time Temp Pulse Resp B/P (MAP) Pulse Ox O2 Delivery O2 Flow Rate FiO2 07/04/18 13:42 99.3 106 16 121/68 100 Simple Mask 10 99.3 Lab Values Laboratory Tests Test 07/04/18 11:50 White Blood Count 8.7 x10^3/uL (4.0-11.0) Red Blood Count 3.87 x10^6/uL (3.50-5.40) Hemoglobin 11.2 g/dL (12.0-15.5) L Hematocrit 32.7 % (36.0-47.0) L Mean Corpuscular Volume 85 fL (79-100) Mean Corpuscular Hemoglobin 29 pg (25-35) Mean Corpuscular Hemoglobin Concent 34 g/dL (31-37) Red Cell Distribution Width 13.4 % (11.5-14.5) Platelet Count 313 x10^3/uL (140-400) Neutrophils (%) (Auto) 67 % (31-73) Lymphocytes (%) (Auto) 24 % (24-48) Monocytes (%) (Auto) 7 % (0-9) Eosinophils (%) (Auto) 2 % (0-3) Basophils (%) (Auto) 1 % (0-3) Neutrophils # (Auto) 5.8 x10^3uL (1.8-7.7) Lymphocytes # (Auto) 2.1 x10^3/uL (1.0-4.8) Monocytes # (Auto) 0.6 x10^3/uL (0.0-1.1) Eosinophils # (Auto) 0.1 x10^3/uL (0.0-0.7) Basophils # (Auto) 0.1 x10^3/uL (0.0-0.2) Sodium Level 139 mmol/L (136-145) Potassium Level 3.6 mmol/L (3.5-5.1) Chloride Level 103 mmol/L (98-107) Carbon Dioxide Level 25 mmol/L (21-32) Anion Gap 11 (6-14) Blood Urea Nitrogen 17 mg/dL (7-20) Creatinine 0.6 mg/dL (0.6-1.0) Estimated GFR (Cockcroft-Gault) 115.9 BUN/Creatinine Ratio 28 (6-20) H Glucose Level 110 mg/dL (70-99) H Calcium Level 9.2 mg/dL (8.5-10.1) Total Bilirubin 0.4 mg/dL (0.2-1.0) Aspartate Amino Transferase (AST) 40 U/L (15-37) H Alanine Aminotransferase (ALT) 58 U/L (14-59) Alkaline Phosphatase 80 U/L (46-116) Total Protein 7.1 g/dL (6.4-8.2) Albumin 3.3 g/dL (3.4-5.0) L Albumin/Globulin Ratio 0.9 (1.0-1.7) L Laboratory Tests 07/04/18 11:50 Laboratory Tests 07/04/18 11:50 EKG EKG [] Radiology/Procedures Radiology/Procedures [] Pelvic Exam: Nurses Assistant present Abdomen: Nontender External Genitalia: Normal Skin Speculum: Normal vaginal mucosa, heavy bloody cervical discharge, multiple clots were removed and the blood in the canal was removed with ring forceps and 4 x 4's. The bleeding continues to be brisk. There is a large clot that is unable to be removed near the cervix blocking visualization of the os. Course & Med Decision Making Course & Med Decision Making Pertinent Labs and Imaging studies reviewed. (See chart for details) []Dr. Scott was consulted in the care of this patient. He is taking the patient to the OR for suction D&C. The patient has given written consent. She will be transported directly to the OR from the emergency department. Dragon Disclaimer Dragon Disclaimer This electronic medical record was generated, in whole or in part, using a voice recognition dictation system. Departure Departure Impression: Primary Impression: Vaginal bleeding Disposition: ADMITTED INPATIENT Admitting Physician: Other Condition: NADIA OSMAN APRN Jul 04, 2018 15:40
[2018-07-05 04:13] LABS: BASO % 0 % (0-3); EOS % 0 % (0-3); HEMATOCRIT 24.2 % (36.0-47.0); HEMOGLOBIN 8.1 g/dL (12.0-15.5); LYMPH # 1.4 x10^3/uL (1.0-4.8); LYMPH % 10 % (24-48); MEAN CORPUSCULAR HEMOGLOBIN 29 pg (25-35); MEAN CORPUSCULAR HGB CONC 34 g/dL (31-37); MEAN CORPUSCULAR VOLUME 86 fL (79-100); MONO # 0.8 x10^3/uL (0.0-1.1); MONO % 5 % (0-9); NEUT # 12.3 x10^3uL (1.8-7.7); NEUT % 85 % (31-73); PLATELET COUNT 292 x10^3/uL (140-400); RED BLOOD COUNT 2.82 x10^6/uL (3.50-5.40); RED CELL DISTRIBUTION WIDTH 13.3 % (11.5-14.5); WHITE BLOOD COUNT 14.6 x10^3/uL (4.0-11.0)
[2018-07-05 04:24] LABS: CALCIUM 8.4 mg/dL (8.5-10.1); CREATININE 0.5 mg/dL (0.6-1.0); POTASSIUM 4.4 mmol/L (3.5-5.1)
[2018-07-05 06:20] VITALS: BP 95/46
[2018-07-05 11:00] VITALS: BP 106/63
--- NOTE | 2018-07-05 11:32 | PDOC ---
SURGICAL PROGRESS NOTE Subjective Pt. feeling well. No complaints. Vital Signs Vital Signs Date Time Temp Pulse Resp B/P (MAP) Pulse Ox O2 Delivery O2 Flow Rate FiO2 07/05/18 11:00 98.0 95 18 106/63 (77) Room Air 98.0 07/04/18 23:13 100 07/04/18 13:42 10 I&O Intake and Output 07/05/18 07:00 Intake Total 15 ml Balance 15 ml Intake Oral 15 ml # Voids 1 PATIENT HAS A MARSHALL: No General: Alert, Oriented X3, Cooperative HEENT: Atraumatic Lungs: Clear to auscultation Heart: Regular rate Abdomen: Normal bowel sounds, Soft, No tenderness, No masses Neuro: Normal gait Psych/Mental Status: Mental status NL Labs Laboratory Tests Test 07/04/18 11:50 07/05/18 03:30 White Blood Count 8.7 x10^3/uL (4.0-11.0) 14.6 x10^3/uL (4.0-11.0) Red Blood Count 3.87 x10^6/uL (3.50-5.40) 2.82 x10^6/uL (3.50-5.40) Hemoglobin 11.2 g/dL (12.0-15.5) 8.1 g/dL (12.0-15.5) Hematocrit 32.7 % (36.0-47.0) 24.2 % (36.0-47.0) Mean Corpuscular Volume 85 fL (79-100) 86 fL (79-100) Mean Corpuscular Hemoglobin 29 pg (25-35) 29 pg (25-35) Mean Corpuscular Hemoglobin Concent 34 g/dL (31-37) 34 g/dL (31-37) Red Cell Distribution Width 13.4 % (11.5-14.5) 13.3 % (11.5-14.5) Platelet Count 313 x10^3/uL (140-400) 292 x10^3/uL (140-400) Neutrophils (%) (Auto) 67 % (31-73) 85 % (31-73) Lymphocytes (%) (Auto) 24 % (24-48) 10 % (24-48) Monocytes (%) (Auto) 7 % (0-9) 5 % (0-9) Eosinophils (%) (Auto) 2 % (0-3) 0 % (0-3) Basophils (%) (Auto) 1 % (0-3) 0 % (0-3) Neutrophils # (Auto) 5.8 x10^3uL (1.8-7.7) 12.3 x10^3uL (1.8-7.7) Lymphocytes # (Auto) 2.1 x10^3/uL (1.0-4.8) 1.4 x10^3/uL (1.0-4.8) Monocytes # (Auto) 0.6 x10^3/uL (0.0-1.1) 0.8 x10^3/uL (0.0-1.1) Eosinophils # (Auto) 0.1 x10^3/uL (0.0-0.7) 0.0 x10^3/uL (0.0-0.7) Basophils # (Auto) 0.1 x10^3/uL (0.0-0.2) 0.0 x10^3/uL (0.0-0.2) Sodium Level 139 mmol/L (136-145) 142 mmol/L (136-145) Potassium Level 3.6 mmol/L (3.5-5.1) 4.4 mmol/L (3.5-5.1) Chloride Level 103 mmol/L (98-107) 108 mmol/L (98-107) Carbon Dioxide Level 25 mmol/L (21-32) 26 mmol/L (21-32) Anion Gap 11 (6-14) 8 (6-14) Blood Urea Nitrogen 17 mg/dL (7-20) 14 mg/dL (7-20) Creatinine 0.6 mg/dL (0.6-1.0) 0.5 mg/dL (0.6-1.0) Estimated GFR (Cockcroft-Gault) 115.9 143.0 BUN/Creatinine Ratio 28 (6-20) Glucose Level 110 mg/dL (70-99) 126 mg/dL (70-99) Calcium Level 9.2 mg/dL (8.5-10.1) 8.4 mg/dL (8.5-10.1) Total Bilirubin 0.4 mg/dL (0.2-1.0) Aspartate Amino Transf (AST/SGOT) 40 U/L (15-37) Alanine Aminotransferase (ALT/SGPT) 58 U/L (14-59) Alkaline Phosphatase 80 U/L (46-116) Total Protein 7.1 g/dL (6.4-8.2) Albumin 3.3 g/dL (3.4-5.0) Albumin/Globulin Ratio 0.9 (1.0-1.7) Laboratory Tests Test 07/04/18 11:50 07/05/18 03:30 White Blood Count 8.7 x10^3/uL (4.0-11.0) 14.6 x10^3/uL (4.0-11.0) Red Blood Count 3.87 x10^6/uL (3.50-5.40) 2.82 x10^6/uL (3.50-5.40) Hemoglobin 11.2 g/dL (12.0-15.5) 8.1 g/dL (12.0-15.5) Hematocrit 32.7 % (36.0-47.0) 24.2 % (36.0-47.0) Mean Corpuscular Volume 85 fL (79-100) 86 fL (79-100) Mean Corpuscular Hemoglobin 29 pg (25-35) 29 pg (25-35) Mean Corpuscular Hemoglobin Concent 34 g/dL (31-37) 34 g/dL (31-37) Red Cell Distribution Width 13.4 % (11.5-14.5) 13.3 % (11.5-14.5) Platelet Count 313 x10^3/uL (140-400) 292 x10^3/uL (140-400) Neutrophils (%) (Auto) 67 % (31-73) 85 % (31-73) Lymphocytes (%) (Auto) 24 % (24-48) 10 % (24-48) Monocytes (%) (Auto) 7 % (0-9) 5 % (0-9) Eosinophils (%) (Auto) 2 % (0-3) 0 % (0-3) Basophils (%) (Auto) 1 % (0-3) 0 % (0-3) Neutrophils # (Auto) 5.8 x10^3uL (1.8-7.7) 12.3 x10^3uL (1.8-7.7) Lymphocytes # (Auto) 2.1 x10^3/uL (1.0-4.8) 1.4 x10^3/uL (1.0-4.8) Monocytes # (Auto) 0.6 x10^3/uL (0.0-1.1) 0.8 x10^3/uL (0.0-1.1) Eosinophils # (Auto) 0.1 x10^3/uL (0.0-0.7) 0.0 x10^3/uL (0.0-0.7) Basophils # (Auto) 0.1 x10^3/uL (0.0-0.2) 0.0 x10^3/uL (0.0-0.2) Sodium Level 139 mmol/L (136-145) 142 mmol/L (136-145) Potassium Level 3.6 mmol/L (3.5-5.1) 4.4 mmol/L (3.5-5.1) Chloride Level 103 mmol/L (98-107) 108 mmol/L (98-107) Carbon Dioxide Level 25 mmol/L (21-32) 26 mmol/L (21-32) Anion Gap 11 (6-14) 8 (6-14) Blood Urea Nitrogen 17 mg/dL (7-20) 14 mg/dL (7-20) Creatinine 0.6 mg/dL (0.6-1.0) 0.5 mg/dL (0.6-1.0) Estimated GFR (Cockcroft-Gault) 115.9 143.0 BUN/Creatinine Ratio 28 (6-20) Glucose Level 110 mg/dL (70-99) 126 mg/dL (70-99) Calcium Level 9.2 mg/dL (8.5-10.1) 8.4 mg/dL (8.5-10.1) Total Bilirubin 0.4 mg/dL (0.2-1.0) Aspartate Amino Transf (AST/SGOT) 40 U/L (15-37) Alanine Aminotransferase (ALT/SGPT) 58 U/L (14-59) Alkaline Phosphatase 80 U/L (46-116) Total Protein 7.1 g/dL (6.4-8.2) Albumin 3.3 g/dL (3.4-5.0) Albumin/Globulin Ratio 0.9 (1.0-1.7) Problem List Problems Medical Problems: (1) Vaginal bleeding Status: Acute Assessment/Plan POD# 1 s/p suction D&C P: D/c home. STEPHANIE SOMERS Jr, MD Jul 05, 2018 11:32
--- NOTE | 2018-07-05 11:33 | DISCH ---
DISCHARGE INSTRUCTIONS Condition on Discharge Condition on Discharge: Stable Activity After Discharge Activity Instructions for Disc: Activity as tolerated Lifting Instructions after Dis: No heavy lifting Driving Instructions after Dis: Do not drive today Diet after Discharge Diet after Discharge: Regular Contacting the DRCristina after DC Call your doctor for: Concerns you may have Follow-Up Follow up with: Dr. Scott in 1 week. STEPHANIE SCOTT Jr, MD Jul 05, 2018 11:33
[2018-07-05] MEDS ORDERED: IBUP-1060 PO (11:34)
--- NOTE | 2018-07-07 14:08 | PATHOLOGY ---
[facility] Accession Number: [id number] . 01 Material submitted: . PRODUCTS OF CONCEPTION . 01 Clinician provided ICD-10: N93.9 . 01 Clinical history: . None provided . 02 Diagnosis: Uterine contents, dilatation and curettage: - Products of conception, comprised of immature chorionic villi showing focal necrosis and degenerative changes and intervillous hemorrhage, decidual tissue showing focal hemorrhage, necrosis, and acute inflammation, and endomyometrial tissue. . (JPM:mml; 07/07/18) [facility]/07/07/2018 . 02 Electronically signed: . Ramon Goldsmith MD, Pathologist NPI- [id number] . 01 Gross description: . The specimen is received in formalin, labeled "Mary Reid, products of conception". Received are multiple segments of dusky gardner-angel soft tissue admixed with blood coagulum and villiform tissue measuring 7.6 x 6.5 x 2.9 cm in aggregate dimensions. or embryonic tissue is not grossly identified. Vesicular structures are absent. The specimen is submitted representatively in cassettes A1 through A3. (CAA; 07/06/2018) QAC/QAC . 02 Pathologist provided ICD-10: N93.9, O02.89 . 02 CPT . 617254 Specimen Comment: A courtesy copy of this report has been sent to Specimen Comment: [phone], . Specimen Comment: Report sent to / DR ROMEO Specimen Comment: A duplicate report has been generated due to demographic updates. Performed at: [address], [place], [place] [id number] MD Jake Barksdale MD Phone: [phone] Performed at: 02 [facility] [address] [place], [place] [id number] MD Ramon Goldsmith MD Phone: [phone]
== END 2018-07-05 12:20 | disposition home or self-care (01) ==
LOC: ER 11:25 → 3 NORTH 13:42 → INTOOBSV 13:42 → UNDODISOB 07-05 12:20
PROVIDERS: ADMIT Obstetrics & Gynecology; ATTEND Obstetrics & Gynecology
DX: O03.4 Incomplete spontaneous abortion without complication (principal); Z3A.08 8 weeks gestation of pregnancy
CPT/HCPCS: 36415; 59812; 80048; 80053; 85025; 86850; 86900; 86901; 88305; 99285; G0378; J0330; J0690; J1100; J2001; J2250; J2590; J2704; J3010; J3490; J7030; G0379; J2405

== ENCOUNTER 2019-04-26 16:11 | Emergency (ER) | payer BC ==
[~2019-04-26] VITALS: Ht 167.6 cm; Wt 65.8 kg
[~2019-04-26 16:11] MED LIST changes: -HYDR-2758 PO; +HYDR-2761 PO; +HYDR-3164 PO; -HYDR-971 PO; +IBUP-1060 PO
[2019-04-26 16:47] VITALS: BP 140/92
[2019-04-26] MEDS ORDERED: cefTRIAXone IM 1 GM VIAL IM ONE (17:00)
[2019-04-26] MEDS ORDERED: oxyCODONE/APAP 5/325 1 TAB TABLET PO ONE (17:00)
--- NOTE | 2019-04-26 17:18 | PHYS DOC ---
Past Medical History Past Medical History: No Pertinent History Past Surgical History: Tonsillectomy, Other Additional Past Surgical Histo: D&C Alcohol Use: None Drug Use: None Adult General Chief Complaint Chief Complaint: ABSCESS HPI HPI Patient is a 33 year old female who presents with an abscess to her lower back. She was seen in [place] at an Emergency Department where they drained the abscess and placed packing. The patient is here to have her packing removed. She has a prescription for Bactrim DS that she has not filled. She states that the abscess is still very sore. Review of Systems Review of Systems Constitutional: Denies fever or chills [] Respiratory: Denies cough or shortness of breath [] Cardiovascular: No additional information not addressed in HPI [] GI: Denies abdominal pain, nausea, vomiting, bloody stools or diarrhea [] : Denies dysuria or hematuria [] Musculoskeletal: Denies back pain or joint pain [] Integument: See history of present illness Neurologic: Denies headache, focal weakness or sensory changes [] Endocrine: Denies polyuria or polydipsia [] All other systems were reviewed and found to be within normal limits, except as documented in this note. Current Medications Current Medications Current Medications Medications (Trade) Dose Ordered Sig/Louie Start Time Stop Time Status Last Admin Dose Admin Ceftriaxone Sodium (Rocephin Im) 1 gm 1X ONCE 04/26/19 17:00 04/26/19 17:01 DC 04/26/19 17:24 1 GM Oxycodone/ Acetaminophen (Percocet 5/325) 1 tab 1X ONCE 04/26/19 17:00 04/26/19 17:01 DC 04/26/19 17:24 1 TAB Allergies Allergies Allergies Coded Allergies Type Severity Reaction Last Updated Verified No Known Drug Allergies 05/22/15 No Physical Exam Physical Exam Constitutional: Well developed, well nourished, no acute distress, non-toxic appearance. [] Cardiovascular:Heart rate regular rhythm, no murmur [] Lungs & Thorax: Bilateral breath sounds clear to auscultation [] Skin: There is a 3 cm abscess with erythema and calor noted, packing is in place, there is drainage coming out around the packing. After removal of the packing a large amount of purulent drainage was removed, it was redressed with a bulky dressing Back: No tenderness, no CVA tenderness. [] Extremities: No tenderness, no cyanosis, no clubbing, ROM intact, no edema. [] Neurologic: Alert and oriented X 3, normal motor function, normal sensory function, no focal deficits noted. [] Psychologic: Affect normal, judgement normal, mood normal. [] Current Patient Data Vital Signs Vital Signs Date Time Temp Pulse Resp B/P (MAP) Pulse Ox O2 Delivery O2 Flow Rate FiO2 04/26/19 17:24 16 99 Room Air 04/26/19 16:47 98.6 106 140/92 (108) 98.6 EKG EKG [] Radiology/Procedures Radiology/Procedures [] Course & Med Decision Making Course & Med Decision Making Pertinent Labs and Imaging studies reviewed. (See chart for details) The patient was given a gram of Rocephin and a dose of Percocet in the emergency department. She is been counseled not to drive with the pain medication. She is to fill her Bactrim DS immediately and begin taking it. She is to follow-up with her primary care in 2 days for recheck. Dragon Disclaimer Dragon Disclaimer This electronic medical record was generated, in whole or in part, using a voice recognition dictation system. Departure Departure Impression: Primary Impression: Abscess Disposition: 01 HOME, SELF-CARE Condition: STABLE Referrals: NO PCP (PCP) Patient Instructions: Abscess Additional Instructions: Use hot compresses multiple times daily. Take taking the Bactrim DS today. You were given a dose of Rocephin in the emergency department. This will not replace your oral antibiotic. Do not drive or operate heavy machinery today as you were given pain medication in the emergency department. NADIA ROMEO SENIOR ENERGY ANALYST Apr 26, 2019 17:17
== END 2019-04-26 17:56 | disposition home or self-care (01) ==
LOC: ER 16:11
DX: L02.212 Cutaneous abscess of back [any part, except buttock and flank] (principal); Z90.89 Acquired absence of other organs
CPT/HCPCS: 96372; 99283; J0696

== ENCOUNTER 2019-10-04 07:49 | Emergency (ER) | payer BC ==
[2019-10-04 08:05] VITALS: BP 119/73
[2019-10-04] MEDS ORDERED: TRAM-48 PO (08:31)
[2019-10-04] MEDS ORDERED: AMOX500C PO (08:31)
[2019-10-04] MEDS ORDERED: BENZ100C PO (08:31)
--- NOTE | 2019-10-04 08:33 | PHYS DOC ---
Past Medical History Past Medical History: No Pertinent History Past Surgical History: Tonsillectomy, Other Additional Past Surgical Histo: D&C Alcohol Use: None Drug Use: None Adult General Chief Complaint Chief Complaint: SORE THROAT HPI HPI Patient is a 34 year old female with history of tonsillectomy who presents with complaining of sore throat. Patient complaining of sore throat for the last 3 days as a constant pain with dry cough and headache without fever, vomiting, diarrhea and constipation, shortness of breath. Patient had sick contacts at work. Review of Systems Review of Systems Constitutional: Denies fever or chills [] Eyes: Denies change in visual acuity, redness, or eye pain [] HENT: Denies nasal congestion reports sore throat [] Respiratory: Denies cough or shortness of breath [] Cardiovascular: No additional information not addressed in HPI [] GI: Denies abdominal pain, nausea, vomiting, bloody stools or diarrhea [] : Denies dysuria or hematuria [] Musculoskeletal: Denies back pain or joint pain [] Integument: Denies rash or skin lesions [] Neurologic: Denies focal weakness or sensory changes [] Endocrine: Denies polyuria or polydipsia [] All other systems were reviewed and found to be within normal limits, except as documented in this note. Allergies Allergies Allergies Coded Allergies Type Severity Reaction Last Updated Verified No Known Drug Allergies 05/22/15 No Physical Exam Physical Exam Constitutional: Well developed, well nourished, mild distress, non-toxic appearance. [] HENT: Normocephalic, atraumatic, bilateral external ears normal, oropharynx moist, no oral exudates, nose normal. [] Eyes: PERRLA, EOMI, conjunctiva normal, no discharge. [] Neck: Normal range of motion, no tenderness, supple, no stridor. [] Cardiovascular:Heart rate regular rhythm, no murmur [] Lungs & Thorax: Bilateral breath sounds clear to auscultation [] Back: No tenderness, no CVA tenderness. [] Extremities: No tenderness, no cyanosis, no clubbing, ROM intact, no edema. [] Neurologic: Alert and oriented X 3, normal motor function, normal sensory function, no focal deficits noted. [] Psychologic: Affect normal, judgement normal, mood normal. [] Current Patient Data Vital Signs Vital Signs Date Time Temp Pulse Resp B/P (MAP) Pulse Ox O2 Delivery O2 Flow Rate FiO2 10/04/19 08:05 98.6 110 14 119/73 (88) 99 Room Air 98.6 EKG EKG [] Radiology/Procedures Radiology/Procedures [] Course & Med Decision Making Course & Med Decision Making Pertinent Labs reviewed. (See chart for details) discharge: I've spoken with the patient and/or caregivers. I've explained the patient's condition, diagnosis and treatment plan based on information available to me at this time. I've answered the patient's and/or caregivers questions and addressed any concerns. The patient and/or caregivers have a good understanding the patient's diagnosis, condition and treatment plan as can be expected at this point. Vital signs have been stabilized. The patient's condition is stable for discharge from the emergency department. The patient will pursue further outpatient evaluation with her primary care provider or other designated consulting physician as outlined in the discharge instructions. Patient and/or caregivers are agreeable to this plan of care and follow-up instructions have been explained in detail. The patient and/or caregivers have received these instructions in written format and expressed understanding of these discharge instructions. The patient and her caregivers are aware that if any significant change in condition or worsening of symptoms should prompt him to immediately return to this of the closest emergency department. If an emergent department is not readily available I would encourage him to call 911. Bryan Disclaimer Dragon Disclaimer This electronic medical record was generated, in whole or in part, using a voice recognition dictation system. Departure Departure Impression: Primary Impression: Acute pharyngitis Disposition: HOME, SELF-CARE (At 0828) Condition: STABLE Referrals: NO PCP (PCP) Patient Instructions: Viral and Bacterial Pharyngitis Additional Instructions: Drink plenty of liquids Follow-up with your primary care physician in 3-5 days Return to ER if not getting better Thank you for visiting [facility]. We appreciate you trusting us with your care. If any additional problems come up don't hesitate to return to visit us. Please follow up with your primary care provider so they can plan additional care if needed and know about the problem that you had. If symptoms worsen come back to the Emergency Department. Any concerning symptoms that start such as chest pain, shortness of air, weakness or numbness on one side of the body, running high fevers or any other concerning symptoms return to the ER. Scripts Tramadol Hcl (ULTRAM) 50 Mg Tablet 50 MG PO Q6HRS PRN for PAIN, #14 TAB 0 Refills Prov: GAYLE SHABAZZ MD 10/04/19 Benzonatate (TESSALON PERLE) 100 Mg Capsule 1 CAP PO TID for cough, #21 CAP Prov: GAYLE SHABAZZ MD 10/04/19 Amoxicillin (AMOXICILLIN) 500 Mg Capsule 1 CAP PO Q8HRS for infection, #21 CAP Prov: GAYLE SHABAZZ MD 10/04/19 Problem Qualifiers Primary Impression: Acute pharyngitis Pharyngitis/tonsillitis etiology: unspecified etiology Qualified Codes: J02.9 - Acute pharyngitis, unspecified GAYLE SHABAZZ MD Oct 04, 2019 08:33
== END 2019-10-04 08:37 | disposition home or self-care (01) ==
LOC: ER 07:49
DX: J02.9 Acute pharyngitis, unspecified (principal); R05 Cough; R51 Headache; Z90.89 Acquired absence of other organs; Z98.890 Other specified postprocedural states
CPT/HCPCS: 87070; 87880; 99283